=== PATIENT | female | born 1940 | race Caucasian/White ===

== ENCOUNTER 2017-12-14 11:36 | Emergency (ER) | payer OTHER ==
[~2017-12-14] VITALS: Ht 152.4 cm; Wt 72.6 kg
[2017-12-14] MEDS ORDERED: NORVASC5 MG (11:53)
== END 2017-12-14 14:05 | disposition home or self-care (01) ==
LOC: ER 11:36
DX: R42 Dizziness and giddiness (principal); I10 Essential (primary) hypertension

== ENCOUNTER 2018-03-08 16:05 | Emergency (ER) | payer OTHER ==
[~2018-03-08] VITALS: Ht 160 cm; Wt 73.5 kg
[~2018-03-08 16:05] MED LIST: NORVASC5 MG
== END 2018-03-08 16:46 | disposition home or self-care (01) ==
LOC: ER 16:05
DX: I10 Essential (primary) hypertension (principal)

== ENCOUNTER 2019-12-19 12:01 | Emergency (ER) | payer OTHER ==
[~2019-12-19] VITALS: Ht 157.5 cm; Wt 77.1 kg
[2019-12-19] MEDS ORDERED: SYNTHROID75 MCG (12:46)
[2019-12-19] MEDS ORDERED: CLONAZEPAM0.5 M1 (12:47)
[2019-12-19] MEDS ORDERED: EFEXOR (12:49)
== END 2019-12-19 17:26 | disposition home or self-care (01) ==
LOC: ER
DX: I69.398 Other sequelae of cerebral infarction (principal)